=== PATIENT | female | born 1995 | race Caucasian/White ===

== ENCOUNTER 2019-03-10 12:18 | Inpatient (IN) ==
[2019-03-10] MEDS ORDERED: OXYTOCIN 30 UNITS/500 ML BAG IV PRN ×2 (12:38→13:21)
[2019-03-10] MEDS ORDERED: LACTATED RINGER'S 1,000 ML IV PRN (12:38)
[2019-03-10] MEDS ORDERED: ePHEDrine sulfate 50 MG/ML AMP ONE (12:58)
[2019-03-10] MEDS ORDERED: fentaNYL citrate 100 MCG/2 ML VIAL ONE (12:58)
[2019-03-10] MEDS ORDERED: BUPIVACAINE 0.25% 30 ML VIAL ONE (12:58)
[2019-03-10] MEDS ORDERED: fentaNYL 2MCG/ML ROPIV 1.25MG/ML 100 ML BAG EPI ONE (12:59)
[2019-03-10 13:01] LABS: Hematocrit (blood only) 34.5 % (37-47); Hemoglobin 11.7 g/dL (12.0-16.0); Mean Platelet Volume 10.3 fL (7.4-10.4); Platelet Count 247 K/uL (130-400); RDW Coefficient of Variation 14.7 % (11.5-14.5); RDW Standard Deviation 46.1 fL (36.4-46.3); Red Blood Count 4.01 M/uL (4.2-5.4); White Blood Count 11.01 K/uL (4.8-10.8)
[2019-03-10] MEDS ORDERED: METHYLERGONOVINE MALEATE 0.2 MG/ML AMP ONE (13:03)
[2019-03-10 13:08] LABS: Mean Corpuscular Hgb Conc 33.9 g/dL (32-36)
[2019-03-10] MEDS ORDERED: OXYCODONE/ACETAMINOPHEN 5mg/325mg TAB PO PRN (13:21)
[2019-03-10] MEDS ORDERED: BISACODYL 10 MG SUPP PR PRN (13:21)
[2019-03-10] MEDS ORDERED: DIPHTHERIA/TETANUS/PERTUSSIS 0.5 ML SYR/VIAL IM ONE (13:21)
[2019-03-10] MEDS ORDERED: HYDROCORTISONE ACETATE 25 MG SUPP PR PRN (13:21)
[2019-03-10] MEDS ORDERED: ACETAMINOPHEN W/CODEINE #3 1 TAB PO PRN (13:21)
[2019-03-10] MEDS ORDERED: ACETAMINOPHEN 325 MG TAB PO PRN (13:21)
[2019-03-10] MEDS ORDERED: BENZOCAINE 20% AER SPR 82.5 GM CAN EXT PRN (13:21)
[2019-03-10] MEDS ORDERED: SUPERCREAM 0.870% 15 GM JAR EXT PRN (13:21)
[2019-03-10] MEDS: IBUPROFEN 600 MG TAB PO PRN ×2 (13:37→20:10)
[2019-03-10] MEDS: DOCUSATE SODIUM 100 MG CAP PO SCH (20:10)
--- NOTE | 2019-03-10 23:23 | Operative Report ---
DATE OF OPERATION: 03/10/2019 DELIVERY NOTE Patient's gestational age is 40 weeks and 4 days. Her blood type is O positive. She was scheduled for induction for tomorrow on 03/11/2019. She came in in active labor about 6 cm dilated. We attempted to give her epidural; however, she went to full dilatation, pushed out a live female infant via direct occiput anterior position over an intact perineum. Infant was suctioned through the mouth and the nose. Shoulders were delivered without difficulty. Cord was clamped, cut by the father. Cord blood was taken. There was noted to be meconium staining of the membranes and the cord. With IV Pitocin running, the placenta was removed intact. Perineum was infiltrated with local with epinephrine. There was a superficial first-degree laceration. This was repaired by approximating the vaginal mucosa out and to beyond the hymenal ring, then using a deep suture to approximate the bulbocavernosus muscle. Following this, hemostasis was excellent. Sponges were removed from the vagina. Estimated blood loss was 300 mL. I attest to the content of the Intraoperative Record and any orders documented therein. Any exception s are noted below.
[2019-03-11] MEDS: IBUPROFEN 600 MG TAB PO PRN (04:25)
[2019-03-11 07:13] LABS: Hematocrit (blood only) 27.1 % (37-47); Hemoglobin 9.3 g/dL (12.0-16.0); Mean Corpuscular Hgb Conc 34.3 g/dL (32-36); Mean Platelet Volume 10.2 fL (7.4-10.4); Platelet Count 256 K/uL (130-400); RDW Coefficient of Variation 14.7 % (11.5-14.5); RDW Standard Deviation 45.9 fL (36.4-46.3); Red Blood Count 3.15 M/uL (4.2-5.4); White Blood Count 10.98 K/uL (4.8-10.8)
[2019-03-11] MEDS ORDERED: FERROUS SULFATE 325 MG TAB PO SCH (08:00)
[2019-03-11] MEDS ORDERED: PRENATAL VITAMIN 1 TAB PO SCH (08:00)
[2019-03-11] MEDS: DOCUSATE SODIUM 100 MG CAP PO SCH (08:03)
--- NOTE | 2019-03-11 08:18 | Obstetrical Progress Note ---
Date of Service March 11, 2019 Subjective Patient is seen and examined. She feels well, no complaints. Likes to be discharged today Ambulating without dizziness Voiding without difficulty Tolerating regular diet with out N&V Bleeding is minimal No fever/ chills/ CP/ SOB/ N&V/ Leg pain Breast feeding without problems Vital Signs Temp Pulse Resp BP Pulse Ox 03/11/19 04:15 36.5 C 90 16 113/74 100 03/10/19 23:00 36.4 C L 80 16 115/78 99 03/11/19 03/10/19 Range/Units 06:02 12:50 WBC 10.98 H 11.01 H (4.8-10.8) K/uL RBC 3.15 L 4.01 L (4.2-5.4) M/uL Hgb 9.3 L 11.7 L (12.0-16.0) g/dL Hct 27.1 L 34.5 L (37-47) % MCV 86.0 86.0 (80-100) fL MCH 29.5 29.2 (25-34) pg MCHC 34.3 33.9 (32-36) g/dL RDW Std Deviation 45.9 46.1 (36.4-46.3) fL RDW Coeff of William 14.7 H 14.7 H (11.5-14.5) % Plt Count 256 247 (130-400) K/uL MPV 10.2 10.3 (7.4-10.4) fL PE: General: Alert, orientedx3, NAD Abd: soft, NT, fundus firm, below Umbilicus Perineum intact, Lochia rubra minimal Ext; NT, no edema AP: 23 yo s/p , ppd# 1 VSS Afebrile doing well Continue routine care Desires d/c today All questions were answered Instructions were given when to call D/C home , f/u in office Results & Data Vital Signs (Past 12 Hours) Vital Signs Temp Pulse Resp BP Pulse Ox 03/11/19 04:15 36.5 C 90 16 113/74 100 03/10/19 23:00 36.4 C L 80 16 115/78 99
[2019-03-11] MEDS ORDERED: BISACODYL 5 MG TABEC PO SCH (20:00)
== END 2019-03-11 14:53 | disposition home or self-care (01) | DRG 807 ==
LOC: OPB 12:18 → EDSTATUS 12:18 → 4S1 12:20 → 4S2 15:35